=== PATIENT | female | born 1995 | race Caucasian/White ===

== ENCOUNTER → 2019-11-17 | Outpatient (CLI) | payer BC ==
--- NOTE | 2019-11-18 12:37 | US ---
EXAM DESCRIPTION: Abdomen,Complete: Ultrasound. CLINICAL HISTORY: 24 years FemaleABDOMINAL PAIN. Patient nonfasting. COMPARISON: Pelvic ultrasound on the same visit. TECHNIQUE: Transabdominal scanning: grayscale and Doppler modes. Patient nonfasting. FINDINGS: Gallbladder: Contracted with difficult visualization. Wall thickening most likely related to contracted state. Common bile duct: 4.5 mm normal caliber. Liver: Right lobe long axis is 15.2 cm. Normal echogenicity with no focal abnormalities. Normal caliber of the ducts. Normal direction of flow in the portal vein with caliber 10 mm at the hitesh hepatis. Pancreas: Normal size and echogenicity with duct not seen.. Abdominal aorta: Normal caliber from the proximal segment 1.3 cm to the distal segment 1.2 cm. IVC: visualized; normal caliber. Spleen normal echogenicity; long axis measurement is 11.1 cm. Right kidney: 9.7 cm long axis. Normal cortical thickness and echogenicity. No echogenic stones or hydronephrosis. Left kidney: 9.5 cm long axis. Normal cortical thickness and echogenicity. No echogenic stones or hydronephrosis. IMPRESSION: 1. Technically difficult study with gallbladder contracted due to nonfasting state. Nontender and no large stones in the gallbladder. Normal caliber common bile duct. No free fluid. 2. Normal ultrasound of the liver and pancreas. 3. Bilateral kidneys negative. Spleen unremarkable. Normal caliber of the IVC and abdominal aorta. Electronically signed by: Alfonso Cabrera MD 11/18/2019 12:35 PM CDT
--- NOTE | 2019-11-18 12:46 | US ---
EXAM DESCRIPTION: Pelvis Transvaginal: Ultrasound. CLINICAL HISTORY: 24 years Female ABDOMINAL PAIN. LMP October 24, 2019. COMPARISON: Abdominal ultrasound scan on the same visit. Pelvic ultrasound June 2015. TECHNIQUE: Endovaginal scanning; Soriano-scale and Doppler modes. FINDINGS: Uterus 9.0 x 5.8 x 4.4 cm 120.3 mL.. Endometrial thickness 6.8. mm. Myometrium unremarkable.. Uterus not retroflexed. Cervix unremarkable. Cul-de-sac is negative for fluid. Right ovary 3.4 x 2.3 x 2.3 cm 9.5 mL.. Normal color and waveform Doppler vascularity. Central echogenicity in the solid component measuring 1.8 cm maximum diameter could represent an involuting hemorrhagic cyst.. Multiple follicles. No adnexal mass or free fluid. Left ovary 2.8 x 1.6 x 1.4 cm 1.8 mL.. Normal waveform and color Doppler vascularity. Multiple follicles but no cysts. No adnexal mass or free fluid. IMPRESSION: 1. Possible involuting hemorrhagic cyst in the right ovary in maximum diameter 1.8 cm. Multiple follicles. No further follow-up recommended. 2. Multiple follicles in the left ovary. Uterus normal position and not enlarged. No endometrial thickening. Electronically signed by: Alfonso Cabrera MD 11/18/2019 12:44 PM CDT
== END ==
LOC: US 16:08
PROVIDERS: ATTEND Nurse Practitioner Family
DX: R10.9 Unspecified abdominal pain (principal); N83.9 Noninflammatory disorder of ovary, fallopian tube and broad ligament, unspecified